=== PATIENT | female | born 1990 | race African-American/Black ===

== ENCOUNTER 2016-12-22 15:50 | Inpatient (IN) | payer MEDICAID, OTHER ==
[~2016-12-22] VITALS: Ht 170.2 cm; Wt 88.9 kg
[2016-12-22] VITALS (11 sets, daily range): BP systolic 130–146; BP diastolic 77–82; PULSE 70–89; RESP 17–20; TEMP 98.5–99.3
[~2016-12-22 15:50] MED LIST: ACET500T3 PO; ZOFR4TAB3 SL
--- NOTE | 2016-12-22 16:46 | PD ---
HPI Chief Complaint contractions Date Seen: Dec 22, 2016 Travel History International Travel<30 Days: No Contact w/Intl Traveler<30Days: No Known Affected Area: No History of Present Illness HPI This is a 26y/o at 39w4d who presents to the [facility] with c/o contractions since 2am about 20-30 minutes apart. She denies vaginal bleeding or leakage of fluid with reports of active movements. Pt plans an epidural for pain management. care with Kimmie Munoz, appointment and summary card reviewed, no records available for review. Care uncomplicated. 1. GBS Neg Para: 0 : 1 History Past Medical History Medical History: Denies Significant Hx Past Surgical History Surgical History: No Previous Surgery Family History Family History: Negative Social History Alcohol Use: No Tobacco Use: No Substance Abuse: No Allergies-Medications (Allergen,Severity, Reaction): Coded Allergies: No Known Allergies (Unverified , 06/23/16) Home Meds Active Scripts Ondansetron Odt (Zofran Odt)4 Mg Tab4 Mg SL Q8HR PRN (Nausea/Vomiting) #6 TAB Ref 0 Prov:Grazyna Selby DO 06/23/16 Acetaminophen 500 Mg [id number] Mg PO Q6H PRN (PAIN SCALE 1 TO 4) #20 TAB Ref 0 Prov:Grazyna Selby DO 06/23/16 Review of Systems Except as stated in HPI: all other systems reviewed are Neg Physical Exam Narrative GENERAL: Well-nourished, well-developed patient. SKIN: Warm and dry. HEAD: Normocephalic and atraumatic. EYES: No scleral icterus. No injection or drainage. ENT: No nasal drainage noted. Mucous membranes pink. Airway patent. NECK: Supple, trachea midline. No JVD. CARDIOVASCULAR: Regular rate and rhythm without murmurs, gallops, or rubs. RESPIRATORY: Breath sounds equal bilaterally. No accessory muscle use. BREASTS: Bilateral exam showed no masses , no retractions, no nipple discharge. ABDOMEN/GI: Abdomen soft, non-tender, bowel sounds present, no rebound, no guarding Gravid to 39 weeks size GENITOURINARY: External Genitalia: intact and normal in appearance Cervix: 3-4/70/-3 Presentation: Vertex Membranes: intact Uterine Contractions: 4-7 minutes apart FHT's: Category: 1, 1 variable noted, overall reactive/reassuring EXTREMITIES: No cyanosis or edema. BACK: Nontender without obvious deformity. No CVA tenderness. NEUROLOGICAL: Awake and alert. Motor and sensory grossly within normal limits. Five out of 5 muscle strength in all muscle groups. Normal speech. Data Data Vital Signs Reviewed: Yes MDM Medical Record Reviewed: No Narrative Course / MDM 26y/o at 39w4d with a variable decelerations noted and 1 early decelerations. -not in active labor -admit for augmentation of labor due to variable and 1 early deceleration -GBS neg -anticipate -epidural when desired Diagnosis Diagnosis: Primary Impression: 39 weeks gestation of Additional Impression: Variable heart rate decelerations, antepartum Staci Traylor MD Dec 22, 2016 16:46
[2016-12-22] MEDS ORDERED: LACTATED RINGER'S 1000 ML INJ 1,000 ML IV PRN (16:51)
--- NOTE | 2016-12-22 16:51 | HHI.HP ---
History & Physical H&P [facility] OB ED Note (Detail) Patient Name: Edna Ervin Unit Number: [id number] Date of : 1990 Patient Status: Registered Emergency Room Attending Doctor: Staci Traylor MD HPI HPI Chief Complaint contractions Date Seen: Dec 22, 2016 Travel History International Travel<30 Days: No Contact w/Intl Traveler<30Days: No Known Affected Area: No History of Present Illness HPI This is a 26y/o at 39w4d who presents to the [facility] with c/o contractions since 2am about 20-30 minutes apart. She denies vaginal bleeding or leakage of fluid with reports of active movements. Pt plans an epidural for pain management. care with Kimmie Munoz, appointment and summary card reviewed, no records available for review. Care uncomplicated. 1. GBS Neg Para: 0 : 1 History (Limited) History Past Medical History Medical History: Denies Significant Hx Past Surgical History Surgical History: No Previous Surgery Family History Family History: Negative Social History Alcohol Use: No Tobacco Use: No Substance Abuse: No Allergies-Medications Allergies-Medications (Allergen,Severity, Reaction): Coded Allergies: No Known Allergies (Unverified , 06/23/16) Home Meds Active Scripts Ondansetron Odt (Zofran Odt)4 Mg Tab4 Mg SL Q8HR PRN (Nausea/Vomiting) #6 TAB Ref 0 Prov:Grazyna Selby DO 06/23/16 Acetaminophen 500 Mg [id number] Mg PO Q6H PRN (PAIN SCALE 1 TO 4) #20 TAB Ref 0 Prov:Grazyna Selby DO 06/23/16 ROS Review of Systems Except as stated in HPI: all other systems reviewed are Neg Physical Exam Physical Exam Narrative GENERAL: Well-nourished, well-developed patient. SKIN: Warm and dry. HEAD: Normocephalic and atraumatic. EYES: No scleral icterus. No injection or drainage. ENT: No nasal drainage noted. Mucous membranes pink. Airway patent. NECK: Supple, trachea midline. No JVD. CARDIOVASCULAR: Regular rate and rhythm without murmurs, gallops, or rubs. RESPIRATORY: Breath sounds equal bilaterally. No accessory muscle use. BREASTS: Bilateral exam showed no masses , no retractions, no nipple discharge. ABDOMEN/GI: Abdomen soft, non-tender, bowel sounds present, no rebound, no guarding Gravid to 39 weeks size GENITOURINARY: External Genitalia: intact and normal in appearance Cervix: 3-4/70/-3 Presentation: Vertex Membranes: intact Uterine Contractions: 4-7 minutes apart FHT's: Category: 1, 1 variable noted, overall reactive/reassuring EXTREMITIES: No cyanosis or edema. BACK: Nontender without obvious deformity. No CVA tenderness. NEUROLOGICAL: Awake and alert. Motor and sensory grossly within normal limits. Five out of 5 muscle strength in all muscle groups. Normal speech. Data Data Data Vital Signs Reviewed: Yes MDM MDM Medical Record Reviewed: No Narrative Course / MDM 26y/o at 39w4d with a variable decelerations noted and 1 early decelerations. -not in active labor -admit for augmentation of labor due to variable and 1 early deceleration -GBS neg -anticipate -epidural when desired -clear liquid diet Diagnosis Diagnosis: Primary Impression: 39 weeks gestation of Additional Impression: Variable heart rate decelerations, antepartum Staci Traylor MD Dec 22, 2016 16:46 Staci Traylor MD Dec 22, 2016 16:51
[2016-12-22] MEDS ORDERED: LIDOCAINE HCL 1% 50 ML VIAL I-DERMAL PRN (17:00)
[2016-12-22] MEDS ORDERED: SODIUM CHLORID 0.9% 500 ML INJ 500 ML IV PRN (17:00)
[2016-12-22] MEDS ORDERED: LIDOCAINE HCL 1% 50 ML VIAL INFIL PRN (17:00)
[2016-12-22] MEDS ORDERED: MINERAL OIL 10 ML VIAL TOPICAL PRN (17:00)
[2016-12-22] MEDS ORDERED: OXYTOCIN 30 UNITS-500ML PREMIX 500 ML IV ONE (17:00)
[2016-12-22] MEDS ORDERED: CITRIC ACID-SODIUM CITRATE LIQ 30 ML UDC PO SCH (17:00)
[2016-12-22] MEDS ORDERED: SODIUM CHLOR 0.9% 1000 ML INJ 1,000 ML IV PRN (17:11)
[2016-12-22] MEDS ORDERED: PRENTAB44 PO (17:58)
[2016-12-22 18:26] LABS: AUTOMATED NEUTROPHIL # 8.9 TH/MM3 (1.8-7.7); BASOPHIL % 0.2 % (0.0-2.0); EOSINOPHIL % 0.1 % (0.0-4.0); HEMATOCRIT 35.7 % (35.0-46.0); LYMPH % 16.2 % (9.0-44.0); MEAN CELL VOLUME 75.8 FL (80.0-100.0); MEAN CORPUSCULAR HEMOGLOBIN 23.7 PG (27.0-34.0); MEAN CORPUSCULAR HGB CONC 31.3 % (32.0-36.0); MONO % 9.9 % (0.0-8.0); NEUT % 73.6 % (16.0-70.0); PLATELET COUNT 171 TH/MM3 (150-450); RED BLOOD COUNT 4.71 MIL/MM3 (4.00-5.30); RED CELL DISTRIBUTION WIDTH 16.5 % (11.6-17.2); WHITE BLOOD COUNT 12.1 TH/MM3 (4.0-11.0)
[2016-12-22 18:35] LABS: HEMO FLAGS AUTO DIFF
[2016-12-22 18:53] LABS: BACTERIA, URINE OCC /hpf; BLOOD, URINE MOD (NEG); COMMENT (UR) CULT NOT INDICATED; CULTURE IF INDICATED CULT NOT INDICATED; GLUCOSE,URINE NEG (NEG); KETONE, URINE NEG (NEG); NITRITE,URINE NEG (NEG); SQUAMOUS EPITHELIAL CELL URINE 4 /hpf (0-5); URINE COLOR YELLOW (YELLW/STRAW)
[2016-12-22 20:03] LABS: BANDS 2 % (0-6); MYELOCYTES 1 % (0-0); NEUTROPHIL # MANUAL DIFF 9.6 TH/MM3 (1.8-7.7); POLYS (SEG NEUTROPHILS) 76 % (16-70); WBC DIFF SAMPLE 100
[2016-12-22 20:05] LABS: PLATELET ESTIMATE SMEAR NORMAL (NORMAL); PLATELET MORPHOLOGY ENLARGED (NORMAL)
[2016-12-22 20:06] LABS: OVALOCYTES 1+ (NORMAL); TOXIC VACUOLATION PRESENT (NONE SEEN)
[2016-12-22 20:07] LABS: KERATOCYTES OCC (NORMAL)
[2016-12-22 20:08] LABS: SCAN/DIFF FINAL DIFF MANUAL; TEARDROP RBCS 1+ (NORMAL)
[2016-12-22] MEDS ORDERED: fentaNYL 2MCG-BUPIV 0.125% INJ 100 ML ONE (20:48)
[2016-12-22] MEDS ORDERED: ePHEDrine/NS 25 MG/5 ML SYR ONE (20:48)
--- NOTE | 2016-12-22 20:50 | PD.LABORPN ---
Subjective Subjective This is a 26y/o at 39w4d who was admitted due to 1 variable, 1 early and 1 late deceleration in early labor. She denies any issues and is resting well. May get an epidural but not right now. Objective Vital Signs Vital Signs Date Time Temp Pulse Resp B/P Pulse Ox O2 Delivery O2 Flow Rate FiO2 12/22/16 19:06 72 135/78 12/22/16 19:00 18 12/22/16 19:00 98.5 12/22/16 18:45 17 12/22/16 17:30 18 12/22/16 16:15 99.3 20 12/22/16 16:07 89 130/77 Objective Pelvic Exam: Cervix: 5/80/-1 Membranes: ruptured at 8:25p, minimal fluid, clear Uterine Contractions: q 2-3 minutes apart FHT's: Category: 1, moderate variability Assessment/Plan Problem List: (1) 39 weeks gestation of (2) Variable heart rate decelerations, antepartum Assessment and Plan 26y/o at 39w4d admitted with 1 variable, 1 late and 1 early deceleration. -now Cat I tracing -anticipate -AROM clear performed at 8:25p Staci Traylor MD Dec 22, 2016 20:50
[2016-12-22] MEDS ORDERED: ONDANSETRON HCL 4 MG/2 ML VIAL ONE (22:58)
[2016-12-22] MEDS ORDERED: ONDANSETRON HCL 4 MG/2 ML VIAL IV PUSH PRN (23:00)
[2016-12-22] MEDS: LACTATED RINGER'S 1000 ML INJ 1,000 ML IV SCH (23:07)
[2016-12-23] VITALS (107 sets, daily range): BP systolic 71–145; BP diastolic 49–101; PULSE 57–84; RESP 17–18; TEMP 98–99.4
[2016-12-23] MEDS ORDERED: OXYTOCIN 30 UNITS-500ML PREMIX 500 ML IV SCH (00:30)
[2016-12-23] MEDS: LACTATED RINGER'S 1000 ML INJ 1,000 ML IV SCH (00:51)
[2016-12-23] MEDS ORDERED: fentaNYL 2MCG-BUPIV 0.125% 100 ML EPIDURAL SCH (01:44)
[2016-12-23] MEDS ORDERED: NO SYSTEM NARCOTICS PRN (01:44)
[2016-12-23] MEDS ORDERED: DO NOT ADMINISTER ANTICOAGULANTS PRN (01:44)
[2016-12-23] MEDS ORDERED: ePHEDrine/NS 25 MG/5 ML SYR IV PRN (02:15)
--- NOTE | 2016-12-23 08:54 | PD.OB.DELI ---
Delivery Date: Dec 23, 2016 Anesthesia: Epidural Episiotomy: None Vaginal Delivery: Normal Presentation: Occiput anterior Nuchal Cord: x1 Delayed cord clamping (45 sec): Yes : Male One Minute : 8 Five Minute : 9 Weight: [id number] Placenta: Spontaneous delivery Laceration: 1 deg (labial bilaterally) Repair: Chromic running Additional Information This is a 26y/o at 39w5d who presented to the [facility] with reports of contractions. The FHR was noted to have 1 variable, 1 late and 1 early deceleration so she was admitted for delivery. She progressed well spontaneously through labor but oxytocin had to be started at 1230a due to spaced out contractions. She received an epidural at 0145. She pushed very effectively and the head was delivered atraumatically. The body was delivered atraumatically and a vigorous male was delivered. The was placed on the maternal abdomen. The cord was clamped and cut after it stopped pulsating. The vagina was examined and first degree labial lacerations were noted bilaterally which were repaired with 3-0 chromic. The placenta was delivered spontaneously and noted to be intact. The lacerations were noted to be hemostatic. Bleeding was minimal. All sponge/lap/instruments were accounted for. Staci Traylor MD Dec 23, 2016 08:54
[2016-12-23] MEDS ORDERED: ONDANSETRON ODT 4 MG TAB PO PRN (09:00)
[2016-12-23] MEDS ORDERED: ZOLPIDEM TARTRATE 5 MG TAB PO PRN (09:00)
[2016-12-23] MEDS ORDERED: WITCH HAZEL 50%/GLYCERIN 12.5% 40 PAD JAR TOPICAL PRN (09:00)
[2016-12-23] MEDS ORDERED: oxyCODONE/ACETAMINOPHEN 5 MG/325 MG TAB PO PRN (09:00)
[2016-12-23] MEDS ORDERED: SODIUM CHLORIDE 0.9% FLUSH 10 ML FLUSH IV FLUSH PRN (09:00)
[2016-12-23] MEDS ORDERED: ACETAMINOPHEN 325 MG TAB PO PRN (09:00)
[2016-12-23] MEDS ORDERED: DOCUSATE SODIUM 50 MG/SENNA 8.6 MG TAB PO PRN (09:00)
[2016-12-23] MEDS ORDERED: IBUPROFEN 600 MG TAB PO PRN (09:00)
[2016-12-23] MEDS ORDERED: ALUMINUM/MAGNESIUM/SIMETH 30 ML CUP PO PRN (09:00)
[2016-12-23] MEDS ORDERED: BENZOCAINE 20% TOPICAL SPRAY 60 ML CAN TOPICAL PRN (09:00)
[2016-12-23] MEDS: SODIUM CHLORIDE 0.9% FLUSH 10 ML FLUSH IV FLUSH SCH (09:00)
[2016-12-23] MEDS ORDERED: DIPHTH/TETANUS/ACEL PERTUSSIS (BOOSTER) 0.5 ML VIAL/PFS IM ONE (16:00)
[2016-12-23] MEDS ORDERED: MEASLES, MUMPS, RUBELLA VACCINE 0.5 ML VIAL SQ ONE (16:00)
--- NOTE | 2016-12-24 06:35 | HHI.OB ---
Subjective Remarks No acute issues overnight. Vitals are stable, patient remains afebrile. Vaginal bleeding is decreasing and pain is well-controlled. She is ambulating without difficulty, voiding and stooling. She denies any chest pain, shortness of breath, or leg pain. She is bonding well with . Objective Vitals/I&O Vital Signs Date Time Temp Pulse Resp B/P Pulse Ox O2 Delivery O2 Flow Rate FiO2 12/23/16 22:27 98.6 12/23/16 19:18 99.4 12/23/16 19:18 72 18 105/69 12/23/16 11:30 98.0 57 18 123/69 12/23/16 10:25 18 12/23/16 10:15 76 120/64 12/23/16 10:10 18 12/23/16 10:00 78 103/71 12/23/16 09:51 18 12/23/16 09:46 81 120/49 12/23/16 09:40 18 12/23/16 09:31 77 109/72 12/23/16 09:25 17 12/23/16 09:15 67 126/64 12/23/16 09:03 18 12/23/16 09:00 73 137/74 12/23/16 08:55 18 12/23/16 08:35 98.0 12/23/16 08:34 18 12/23/16 08:31 74 134/55 12/23/16 08:00 63 132/65 12/23/16 07:59 18 12/23/16 07:50 63 12/23/16 07:40 83 12/23/16 07:35 64 12/23/16 07:30 61 12/23/16 07:30 61 116/56 12/23/16 07:25 70 12/23/16 07:20 66 12/23/16 07:15 70 12/23/16 07:10 71 12/23/16 07:05 66 12/23/16 07:01 75 112/75 12/23/16 07:00 64 12/23/16 06:55 70 12/23/16 06:50 64 12/23/16 06:45 75 12/23/16 06:40 65 12/23/16 06:35 74 Objective Remarks GENERAL: Well-nourished, well-developed patient. CARDIOVASCULAR: Regular rate and rhythm without murmurs, gallops, or rubs. RESPIRATORY: Breath sounds equal bilaterally. No accessory muscle use. ABDOMEN/GI: Abdomen soft, non-tender. Fundus: Firm, non-tender at umbilicus. GENITOURINARY: Light to moderate bleeding. EXTREMITIES: No cyanosis or edema, non-tender, without signs of DVT. Medications and IVs Current Medications Medications (Trade) Dose Ordered Sig/[place] Route Start Time Stop Time Status Last Admin Lactated Ringer's 1,000 ml @ 125 mls/hr Q8H IV 12/22/16 16:51 12/23/16 00:51 Lactated Ringer's 1,000 ml @ 3,000 mls/hr Q20M PRN IV 12/22/16 16:51 (NS 1000 ml Inj) 1,000 ml @ 100 mls/hr Q10H PRN IV 12/22/16 17:11 (fentaNYL INJ) 50 mcg Q1H PRN IV PUSH 12/22/16 17:00 12/22/16 23:06 (fentaNYL INJ) 100 mcg Q1H PRN IV PUSH 12/22/16 17:00 12/23/16 00:38 (Muri-Lube Oil) 10 ml UNSCH PRN TOPICAL 12/22/16 17:00 Ondansetron HCl 4 mg 4 mg Q6HR PRN IV PUSH 12/22/16 23:00 Oxytocin 500 ml @ 0 mls/hr TITRATE IV 12/23/16 00:30 (fentaNYL 2MCG-BUPIV 0.125% INJ) 100 ml @ 0 mls/hr TITRATE EPIDURAL 12/23/16 01:44 (NS Flush) 2 ml BID IV FLUSH 12/23/16 09:00 (NS Flush) 2 ml UNSCH PRN IV FLUSH 12/23/16 09:00 (Tylenol) 650 mg Q4H PRN PO 12/23/16 09:00 (Motrin) 600 mg Q6H PRN PO 12/23/16 09:00 (Percocet 5-325 Mg) 1 tab Q4H PRN PO 12/23/16 09:00 (Americaine 20% Top Spr) 1 spray Q4H PRN TOPICAL 12/23/16 09:00 12/23/16 14:47 (Tucks Pads) 1 applic QID PRN TOPICAL 12/23/16 09:00 12/23/16 14:47 (Rachel-Colace) 2 tab Q12H PRN PO 12/23/16 09:00 (Ambien) 5 mg HS PRN PO 12/23/16 09:00 (Mag-Al Plus Susp Liq) 15 ml Q8H PRN PO 12/23/16 09:00 (Zofran Odt) 4 mg Q6H PRN PO 12/23/16 09:00 Assessment/Plan Problem List: (1) (spontaneous vaginal delivery) Assessment and Plan 26 y/o female who is PPD# 1 s/p . -Continue routine care. -Percocet and Motrin PRN pain. -Encouraged OOB. Advised pelvic rest for 6 wks. -Re: ctrl, she would like to consider her options. -Anticipate discharge home tomorrow. Alivia Arredondo Dr., MD R2 Dec 24, 2016 06:35
[2016-12-24 08:30] VITALS: BP 111/68; PULSE 67; RESP 18; TEMP 97.7
[2016-12-24] MEDS: LACTATED RINGER'S 1000 ML INJ 1,000 ML IV SCH (08:51)
[2016-12-24] MEDS: SODIUM CHLORIDE 0.9% FLUSH 10 ML FLUSH IV FLUSH SCH (09:00)
[2016-12-24] MEDS ORDERED: PERI8.6T PO (11:03)
[2016-12-24] MEDS ORDERED: IBUP-232 PO (11:03)
--- NOTE | 2016-12-24 11:03 | HHI.DCPOC ---
Discharge Care Plan Diagnosis: (1) (spontaneous vaginal delivery) Report Symptoms to Your Doctor -Temperature above 100.5 degrees -Redness, of incision or excessive or foul smelling drainage -Unusual pain or calf pain -Increased vaginal bleeding -Painful or difficulty urinating -Feelings of extreme sadness or anxiety after 2 weeks Goals to Promote Your Health * To prevent worsening of your condition and complications * To maintain your health at the optimal level Directions to Meet Your Goals Take your medications as prescribed Follow your dietary instruction Follow activity as directed Ensure plenty of rest for recovery Drink fluids for hydration Keep your appointments as scheduled Take your immunizations and boosters as scheduled If your symptoms worsen call your PCP, if no PCP go to Urgent Care Center or Emergency Room Smoking is Dangerous to Your Health. Avoid second hand smoke Call the 24-hour crisis hotline for domestic abuse at Alivia Ocampo MD R2 Dec 24, 2016 11:03
== END 2016-12-24 14:35 | disposition home or self-care (01) | DRG 775 ==
LOC: HOBED 15:50 → H2EB 17:00 → H1EA 12-23 11:20
PROVIDERS: ADMIT Obstetrics & Gynecology; ATTEND Obstetrics & Gynecology
PROC: 10907ZC Drainage of Amniotic Fluid, Therapeutic from Products of Conception, Via Natural or Artificial Opening (ICD-10-PCS; 2016-12-22)
PROC: 10E0XZZ Delivery of Products of Conception, External Approach (ICD-10-PCS; principal; 2016-12-23)
PROC: 0UQMXZZ Repair Vulva, External Approach (ICD-10-PCS; 2016-12-23)
PROC: 00HU33Z Insertion of Infusion Device into Spinal Canal, Percutaneous Approach (ICD-10-PCS; 2016-12-23)
PROC: 3E0R3CZ (ICD-10-PCS; 2016-12-23)
DX: O76 Abnormality in fetal heart rate and rhythm complicating labor and delivery (principal); O69.81X0 Labor and delivery complicated by cord around neck, without compression, not applicable or unspecified; O70.0 First degree perineal laceration during delivery; Z37.0 Single live birth; Z3A.39 39 weeks gestation of pregnancy
CPT/HCPCS: 59025; 81001; 85007; 85027; 86900; 86901; 90715; J2405; J2590; J3010; J7120

== ENCOUNTER 2017-01-28 22:39 | Emergency (ER) | payer SELFPAY ==
[~2017-01-28 22:39] MED LIST changes: -ACET500T3 PO; +IBUP-232 PO; +PERI8.6T PO; +PRENTAB44 PO; -ZOFR4TAB3 SL
[2017-01-28 22:43] VITALS: BP 136/86; PULSE 76; RESP 16; TEMP 98.6; O2SAT 100
[2017-01-29 01:15] VITALS: BP 137/98; PULSE 80; RESP 16; O2SAT 100
--- NOTE | 2017-01-29 01:23 | PD ---
HPI Chief Complaint: Medical Clearance Time Seen by Provider: 01:08 Travel History International Travel<30 days: No Contact w/Intl Traveler<30days: No Traveled to known affect area: No History of Present Illness HPI 26-year-old female requesting blood pressure check. Patient has elevated blood pressure recently. Patient does not have a family physician for blood pressure check. Patient status post vaginal delivery 5 weeks ago. Patient states that she has occasional dizziness. Patient denies any headache. Patient denies any visual change. Patient denies any chest pain or shortness of breath. Patient denies abdominal pain. Patient denies any focal weakness or numbness of extremity. Patient states that her systolic blood pressure was 140 earlier today. PFSH Social History Alcohol Use: No Tobacco Use: No Substance Use: No Allergies-Medications (Allergen,Severity, Reaction): Coded Allergies: No Known Allergies (Unverified , 12/22/16) Reported Meds & Prescriptions Reported Meds & Active Scripts Active Rachel-Colace (Sennosides-Docusate Sodium) 8.6-50 Mg Tab 2 Tab PO BID PRN Ibuprofen 600 Mg Tab 600 Mg PO Q6H PRN Reported and Iron ( Multivit-Min W/Fe-FA) 1 Tab Tab 1 Tab PO DAILY Review of Systems General / Constitutional: No: Fever Eyes: No: Visual changes HENT: No: Headaches Cardiovascular: No: Chest Pain or Discomfort Respiratory: No: Shortness of Breath Gastrointestinal: No: Abdominal Pain Genitourinary: No: Dysuria Musculoskeletal: No: Pain Skin: No Rash Neurologic: No: Weakness Psychiatric: No: Depression Endocrine: No: Polydipsia Hematologic/Lymphatic: No: Easy Bruising Physical Exam Narrative GENERAL: Well-nourished, well-developed patient. SKIN: Focused skin assessment warm/dry. HEAD: Normocephalic. EYES: No scleral icterus. No injection or drainage. NECK: Supple, trachea midline. No JVD or lymphadenopathy. CARDIOVASCULAR: Regular rate and rhythm without murmurs, gallops, or rubs. RESPIRATORY: Breath sounds equal bilaterally. No accessory muscle use. GASTROINTESTINAL: Abdomen soft, non-tender, nondistended. MUSCULOSKELETAL: No cyanosis, or edema. BACK: Nontender without obvious deformity. No CVA tenderness. Neurologic exam normal. Data Data Last Documented VS Vital Signs Date Time Temp Pulse Resp B/P Pulse Ox O2 Delivery O2 Flow Rate FiO2 01/29/17 01:15 80 16 137/98 100 Room Air 01/28/17 22:43 98.6 MDM Medical Decision Making Medical Screen Exam Complete: Yes Emergency Medical Condition: Yes Differential Diagnosis Differential diagnosis including new-onset hypertension, hypertensive emergency , hypertensive crisis. Narrative Course 26-year-old female concerning elevated blood pressure. Blood pressure under control in the ED. Diagnosis Primary Impression: Blood pressure check Patient Instructions: General Instructions Additional Instructions: Advised weight loss and low salt diet. Follow-up with local physician for blood pressure check. Return if persistent elevated blood pressure above 160/ 95. Med/Other Pt SpecificInfo: No Meds Exist/No RX given Disposition: 01 DISCHARGE HOME Condition: Stable Jamin Hernandez MD Jan 29, 2017 01:23
== END 2017-01-29 01:33 | disposition home or self-care (01) ==
LOC: NEPE 22:39
DX: O90.89 Other complications of the puerperium, not elsewhere classified (principal); R03.0 Elevated blood-pressure reading, without diagnosis of hypertension; R42 Dizziness and giddiness
CPT/HCPCS: 99282